=== PATIENT | male | born 1960 | race Caucasian/White ===

== ENCOUNTER 2017-02-10 12:04 | Emergency (ER) | payer MEDICAID ==
[2017-02-10 12:39] LABS: HEMATOCRIT 50.3 % (42.0-54.0); HEMOGLOBIN 17.8 g/dL (13.5-17.5); MCH 34.6 pg (26.0-34.0); MCHC 35.4 g/dL (31.0-37.0); MCV 97.7 fL (80.0-100.0); MEAN PLATELET VOLUME 9.8 fL (7.4-10.4); PLATELET COUNT 183 10x3/uL (130-400); RBC 5.15 10x6/uL (4.20-6.10); RDW 13.6 % (11.5-14.5); WBC 10.3 10x3/uL (4.8-10.8)
[2017-02-10 12:49] LABS: UDS - AMPHET NEGATIVE QUAL (NEGATIVE); UDS - BARB NEGATIVE QUAL (NEGATIVE); UDS - BENZO NEGATIVE QUAL (NEGATIVE); UDS - COCAINE NEGATIVE QUAL (NEGATIVE); UDS - OPIATE NEGATIVE QUAL (NEGATIVE); UDS - PCP NEGATIVE QUAL (NEGATIVE); UDS - THC NEGATIVE QUAL (NEGATIVE)
[2017-02-10 12:50] LABS: APPEARANCE HAZY (CLEAR); BILIRUBIN NEGATIVE (NEGATIVE); COLOR YELLOW (YELLOW); GLUCOSE NEGATIVE (NEGATIVE); KETONE NEGATIVE (NEGATIVE); NITRITE NEGATIVE (NEGATIVE); PROTEIN 1+ mg/dL (NEGATIVE); UROBILINOGEN NORMAL (NORMAL)
[2017-02-10 12:51] LABS: BACTERIA MODERATE /hpf (NONE SEEN); EPITHELIAL CELLS 0-5 /hpf (0-5)
[2017-02-10 13:05] LABS: ALBUMIN 3.9 g/dL (3.4-5.0); ALKALINE PHOSPHATASE 57 U/L (46-116); ALT (SGPT) 35 U/L (10-68); BILIRUBIN - TOTAL 0.36 mg/dL (0.2-1.3); CALC OSMOLALITY 275 mosm/kg (275-300); CALCIUM 8.9 mg/dL (8.5-10.1); CARBON DIOXIDE 30.1 mmol/L (21.0-32.0); CHLORIDE - SERUM 100 mmol/L (98-107); CREATININE - SERUM 0.7 mg/dL (0.6-1.3); GLUCOSE 134 mg/dL (74-106); POTASSIUM - SERUM 3.5 mmol/L (3.5-5.1); PROTEIN - SERUM 7.5 g/dL (6.4-8.2); SODIUM 138 mmol/L (136-145); UREA NITROGEN 7 mg/dL (7-18); eGFR NON AFRICAN AMERICAN > 90 mL/min (90-120)
[2017-02-10 13:28] LABS: EOSINOPHILS 1 % (0-7); LYMPHOCYTES 44 % (15-50); MONOCYTES 11 % (2-11); NEUTROPHILS 39 % (40-80); PLATELET ESTIMATE NORMAL
== END 2017-02-10 23:21 | disposition home or self-care (01) ==
LOC: D.ER 12:04
PROVIDERS: Emergency Medicine
DX: Z86.59 Personal history of other mental and behavioral disorders (principal); F10.10 Alcohol abuse, uncomplicated; F10.129 Alcohol abuse with intoxication, unspecified; I10 Essential (primary) hypertension; F17.200 Nicotine dependence, unspecified, uncomplicated

== ENCOUNTER 2017-08-18 19:20 | Emergency (ER) | payer MEDICAID ==
[~2017-08-18] VITALS: Ht 180.3 cm; Wt 86.4 kg
[2017-08-18 19:42] VITALS: BP 179/114; Ht 180.3 cm; Wt 86.4 kg
[2017-08-18] MEDS ORDERED: METOPROLOL TART25 MG PO (19:51)
[2017-08-18] MEDS ORDERED: LISINOPRIL10 MG PO (19:51)
[2017-08-18] MEDS ORDERED: DEPAKOTE125 MG PO (19:52)
[2017-08-18] MEDS ORDERED: INDERAL10 MG PO (19:53)
== END 2017-08-18 20:05 | disposition left against medical advice (07) ==
LOC: D.ER 19:20
DX: R44.3 Hallucinations, unspecified (principal)

== ENCOUNTER 2019-10-05 06:19 | Day surgery (SDC) | payer MEDICAID ==
[~2019-10-05] VITALS: Ht 180.3 cm; Wt 92.5 kg
[~2019-10-05 06:19] MED LIST: CHANTIX0.5 MG PO; DEPAKOTE125 MG PO; INDERAL10 MG PO; LISINOPRIL10 MG PO; METOPROLOL TART25 MG PO; MULTI-DAY VITAM1 TAB PO; TRAZODONE HCL150 MG PO; ZYRTEC10 MG PO
[2019-10-05 07:45] LABS: HEMATOCRIT 47.9 % (42.0-54.0); HEMOGLOBIN 15.9 g/dL (13.5-17.5); MCH 31.4 pg (26.0-34.0); MCHC 33.2 g/dL (31.0-37.0); MCV 94.5 fL (80.0-100.0); MEAN PLATELET VOLUME 9.6 fL (7.4-10.4); RBC 5.07 10x6/uL (4.20-6.10); RDW 13.5 % (11.5-14.5); WBC 9.2 10x3/uL (4.8-10.8)
[2019-10-05 08:06] VITALS: BP 133/85; Ht 180.3 cm; Wt 92.5 kg
--- NOTE | 2019-10-05 12:25 | NUR ---
IV D/C'D WITH CANNULA INTACT, PRESSURE HELD, AND DRSG PLACED. REPORTS NO PAIN IN HAND BUT BACK HURTS, IMPROVING WITH MOVEMENT. DISCHARGE INSTRUCTIONS GIVEN AND PT VERBALIZED AN UNDERSTANDING. DISCHARGED HOME WITH ALL CRITERIA MET AND WITHOUT C/O
--- NOTE | 2019-10-06 07:53 | OP ---
PATIENT NAME: MARIANGEL HANNAH MEDICAL RECORD: [id number] :64 LOCATION:[facility] ADMISSION DATE: SURGEON: JEY BERMUDEZ DO DATE OF OPERATION: 10/05/2019 PROCEDURE PERFORMED: Left endoscopic carpal tunnel release and left middle finger A1 cornelia release. PREOPERATIVE DIAGNOSIS: Left middle finger trigger finger and carpal tunnel syndrome at the left wrist. POSTOPERATIVE DIAGNOSIS: Left middle finger trigger finger and carpal tunnel syndrome at the left wrist. INDICATIONS: Mr. Hannah is a 59-year-old male who came to see me in the office with a trigger finger. He had pain after getting a dog bite in his middle finger and his finger started catching. This may have been to some tenosynovitis, but there was an all aspect of a trigger finger. I did try an injection in it and it did not work well for him. He is also complaining of median nerve distribution numbness and he said this has been going on for quite some time. He was tired of dealing with it. I sent him for a nerve conduction study and he did have carpal tunnel syndrome. He then returned to my office and we discussed endoscopic carpal tunnel release. He was okay with that and was aware of the risk of it and the benefits as well. The risks including infection, bleeding, damage to median nerve, loss of sensation or not returning sensation in the median nerve distribution, possible injury if he had any other abnormalities of the nerve. He is okay with all that and then prior to starting the surgery, he asked me to release the A1 cornelia of the middle finger, the injection did not help. I informed him that I can do that and he signed the consent. SURGEON: Jey Bermudez DO DESCRIPTION OF PROCEDURE: The patient was taken to the operative suite, laid in the supine position, given general anesthetic, given a gram of Ancef, sedated and LMA was placed. The left upper extremity was then prepped and draped in sterile fashion. A timeout was performed; everyone was in agreement with the correct side, site, patient and procedure. I then exsanguinated left upper extremity with Esmarch and tourniquet was inflated to 250 mmHg, was up for 12 minutes. I first addressed the carpal tunnel and made approximately a cm long incision centered over the palmaris longus tendon and then with blunt dissection with Ragnells went down to the median nerve to release the forearm fascia from distal to proximal at the site and then entered the carpal tunnel with the dilators. I then entered the sheath into it and the camera and brought in the probe and the rasp and cleaned off the transverse carpal ligament. I did not see a transligamentous nerve. I then brought in the blade and raised it up and transected the transverse carpal ligament. Fat then herniated down into the carpal tunnel, indicating good release. I then removed the instruments, and with a Ragnell and a scissors, spread any remaining fibers of the transcarpal ligament. We then addressed the A1 cornelia of the middle finger, made an incision over the distal palmar crease. Made a careful dissection down to the A1 cornelia and released it under direct visualization after it was cleaned off with Minna. I did bluntly dissect down to it with Renetta. Once it was released, he did have some synovitis which I cleaned up and then pulled the tendon out of the incision to ensure that there was no clicking, popping, or OPERATIVE REPORT [id number] MARIANGEL HANNAHing. The tourniquet was then let down. I injected each site with 0.25% Marcaine with epinephrine. Approximately 7 mL at the carpal tunnel site and 3 at the trigger finger release site. This was then closed by Wendi Andres, certified occupational therapist's assistant. He closed the trigger finger with 4-0 nylon in a horizontal mattress fashion and the carpal tunnel with 5-0 Monocryl in inverted interrupted fashion, dressed with Adaptic, 4 x 4s, Kerlix, and a Coban lightly wrapped. He was then awakened and taken to recovery in stable condition. Tourniquet was let down at 12 minutes. BLOOD LOSS: Minimal. COMPLICATIONS: None. TRANSINT:[id number] Voice Confirmation ID: [id number] DOCUMENT ID: [id number] JEY BERMUDEZ DO at 0753 CC: [id number] DICTATION DATE: 10/05/19 1338 ELECTRO OPTICS ENGINEER: 10/05/192047 [facility] [place], [place] 10/05/19 [id number] [place] [address]
== END 2019-10-05 11:00 | disposition home or self-care (01) ==
LOC: D.OPS 06:19 → D.PAN 11:00 → D.OPS 11:00 → D.PAN 14:00 → D.OPS 14:00
PROVIDERS: Anesthesiology; ATTEND Orthopaedic Surgery
DX: M65.332 Trigger finger, left middle finger (principal); G56.03 Carpal tunnel syndrome, bilateral upper limbs; G56.21 Lesion of ulnar nerve, right upper limb; I10 Essential (primary) hypertension; M79.642 Pain in left hand; F41.9 Anxiety disorder, unspecified